=== PATIENT | male | born 1965 | race Caucasian/White ===

== ENCOUNTER 2016-07-21 12:32 | Outpatient (CLI) ==
[2016-07-21 13:04] LABS: BASOPHILS % (AUTO) 0.4 % (0.0-3.0); EOSINOPHILS # (AUTO) 0.3 K/ul (0.0-0.7); EOSINOPHILS % (AUTO) 3.4 % (0.0-7.0); HEMATOCRIT 47.7 % (42.0-52.0); HEMOGLOBIN 16.5 g/dl (14.0-18.0); IMMATURE GRANULOCYTE % (AUTO) 0.4 % (0.0-5.0); LYMPHOCYTES # (AUTO) 2.1 K/uL (0.60-3.4); LYMPHOCYTES % (AUTO) 25.3 (10.0-50.0); MEAN CORPUSCULAR HEMOGLOBIN 30.8 pg (27.0-31.0); MEAN CORPUSCULAR HGB CONC 34.6 (31.8-35.4); MEAN CORPUSCULAR VOLUME 89.2 fl (80.0-94.0); MONOCYTES # (AUTO) 0.6 K/uL (0.4-2.0); MONOCYTES % (AUTO) 7.4 (0-10); NEUTROPHILS # (AUTO) 5.1 K/ul (2.0-6.9); NEUTROPHILS % (AUTO) 63.1; PLATELET COUNT 312 10^3/uL (140-440); RED BLOOD COUNT 5.35 10^6/ul (4.70-6.10); WHITE BLOOD COUNT 8.14 K/ul (4.2-10.2)
[2016-07-21 13:40] LABS: ALBUMIN 4.5 g/dL (3.4-5.0); ALBUMIN/GLOBULIN RATIO 1.22; ANION GAP 17.9; BILIRUBIN,TOTAL 1.67 mg/dL (0.00-1.20); BUN/CREATININE RATIO 15.53; CALCIUM 10.2 mg/dL (8.2-10.2); CHOL/HDL RATIO 5.7 (4.5-6.4); CREATININE 1.03 mg/dL (0.60-1.10); POTASSIUM 3.9 mmol/L (3.5-5.1); TOTAL PROTEIN 8.2 g/dL (6.4-8.2)
== END 2016-07-21 12:33 | disposition home or self-care (01) ==
LOC: LAB 12:32
PROVIDERS: ATTEND Nurse Practitioner Family
DX: E75.6 Lipid storage disorder, unspecified (principal)
CPT/HCPCS: 36415; 80053; 80061; 84439; 84443; 85025

== ENCOUNTER 2016-07-24 10:24 | Outpatient (CLI) ==
--- NOTE | 2016-07-24 11:28 | US ---
EXAM: Ultrasound scrotum and contents. HISTORY: Right testicular pain and swelling. COMPARISON: None available. TECHNIQUE: Escobar-scale and color Doppler images. FINDINGS: The right testicle measures 3.8 x 1.8 x 2.8 cm. There is homogeneous echogenicity with vascular flow . Right epididymis is unremarkable. There is a small amount of right scrotal fluid. The left testicle measures 3.5 x 1.6 x 2.7 cm. There is homogeneous echogenicity with vascular flow . Left epididymis is unremarkable. There is a small amount of left scrotal fluid. IMPRESSION: 1. No sonographic abnormality of the testes. 2. Small bilateral hydroceles.
== END 2016-07-24 10:25 | disposition home or self-care (01) ==
LOC: RAD 10:24
PROVIDERS: ATTEND Nurse Practitioner Family
DX: N50.819 Testicular pain, unspecified (principal)

== ENCOUNTER 2017-05-07 12:50 | Outpatient (CLI) | END 2017-05-07 12:51 | disposition home or self-care (01) | LOC: RHC-LAB 12:50 → FCC-LAB 12:51 | PROVIDERS: ATTEND Nurse Practitioner Family | DX: E78.5 Hyperlipidemia, unspecified (principal); Z12.5 Encounter for screening for malignant neoplasm of prostate | CPT/HCPCS: 36415; 80053; 80061; 85025 ==